=== PATIENT | female | born 1945 | race Caucasian/White ===

== ENCOUNTER 2017-03-23 10:12 | Observation (INO) | payer MEDICARE, OTHER ==
--- NOTE | 2017-03-23 10:34 | ED Physician Documentation ---
History of Present Illness - Stated complaint Stated Complaint: CHEST PX - Chief complaint Chief Complaint: Cardiac - Additonal information Additional information: hx from pt 71 female chest pain onset 4 AM left sided 11/13 feels like needles no cough soa no abd pain + nausea no vomit no leg swelling no travel no fhx CAD and her BP monitor read irreg HR Review of Systems Constitutional: denies: Fever, Chills, Sweats Throat: denies: Sore throat Cardiac: reports: Chest pain / pressure Respiratory: denies: Dyspnea GI: reports: Nausea. denies: Abdominal Pain Musculoskeletal: denies: Back pain, Extremity swelling Endocrine: denies: Easy bruising / bleeding Immunocompromised: denies: Immunocompromised PD PAST MEDICAL HISTORY - Past Medical History Past Medical History: Yes Cardiovascular: Hypertension, High cholesterol GI: GERD - Present Medications Home Medications: Ambulatory Orders Medication Instructions Recorded Confirmed Amlodipine Besylate 5 mg PO DAILY 03/23/17 03/23/17 Gabapentin 600 mg PO DAILY 03/23/17 03/23/17 Lansoprazole [Prevacid] 30 mg PO DAILY 03/23/17 03/23/17 Losartan/Hydrochlorothiazide 1 tab PO DAILY 03/23/17 03/23/17 [Losartan-Hctz 100-25 mg Tab] Metoprolol Succinate 50 mg PO DAILY 03/23/17 03/23/17 Rosuvastatin Calcium 10 mg PO DAILY 03/23/17 03/23/17 - Allergies Allergies/Adverse Reactions: Allergies Allergy/AdvReac Type Severity Reaction Status Date / Time No Known Drug Allergies Allergy Verified 03/23/17 10:21 - Social History Does the pt smoke?: No Smoking Status: Never smoker PD ED PE NORMAL - Vitals Vital signs reviewed: Yes - General General: Alert and oriented X 3 - HEENT HEENT: PERRL - Neck Neck: Supple, no meningeal sign - Cardiac Cardiac: RRR - Respiratory Respiratory: No respiratory distress, Clear bilaterally - Abdomen Abdomen: Soft, Non tender - Extremities Extremities: No edema - Neuro Neuro: Alert and oriented X 3, No motor deficit Results - Vitals Vitals: Vital Signs - 24 hr 03/23/17 03/23/17 10:18 11:11 Temperature 36.7 C Heart Rate 85 86 Respiratory 18 16 Rate Blood Pressure 141/77 H 108/66 O2 Saturation 97 92 Oxygen O2 Source Room air - EKG (time done) 1027 Rate: Rate (enter#) (82) Rhythm: NSR [place]: Normal Intervals: Normal CT Ischemia: Q waves, Non specific changes - Labs Labs: Laboratory Tests 03/23/17 03/23/17 03/23/17 10:58 10:58 10:58 WBC 6.9 RBC 4.96 Hgb 14.0 Hct 41.4 MCV 83.5 MCH 28.2 MCHC 33.7 RDW 13.6 Plt Count 243 MPV 7.9 Neut # 5.7 Lymph # 1.0 L [place] # 0.1 Eos # 0.1 Baso # 0.1 Absolute Nucleated RBC 0.00 Nucleated RBCs 0.0 Sodium 137 Potassium 3.3 L Chloride 100 L Carbon Dioxide 26 Anion Gap 11.0 BUN 12 Creatinine 0.6 Estimated GFR (MDRD) 99 Glucose 148 H Calcium 9.6 Total Bilirubin 1.0 AST 26 ALT 23 Alkaline Phosphatase 80 Troponin I < 0.04 Total Protein 7.1 Albumin 4.1 Globulin 3.0 Albumin/Globulin Ratio 1.4 Lipase 37 - Rads (name of study) CXR Radiology: See rad report (neg) PD MEDICAL DECISION MAKING - ED course ED course: trop # 1 neg 4-6 hr after onset of sx but EKG shows Q waves concerning for prior CAD and pain was relieved with nitro feel pt has enough risk factors and her heart score is 6 - feel best to place in obs for serial CE and an echo Departure - Departure Disposition: ED Place in Observation Clinical Impression: Chest pain Qualifiers: Chest pain type: unspecified Qualified Code(s): R07.9 - Chest pain, unspecified Condition: Good Discharge Date/Time: 03/23/17 12:39
[2017-03-23] MEDS ORDERED: ASPIRIN CHEW 81 MG TABLET PO STA (10:38)
[2017-03-23] MEDS ORDERED: NITROGLYCERIN SL 0.4 MG TABLET SL STA (10:38)
[2017-03-23] MEDS ORDERED: NITROGLYCERIN SL 0.4 MG TABLET SL ONE (11:11)
[2017-03-23] MEDS ORDERED: ASPIRIN CHEW 81 MG TABLET ONE (11:11)
[2017-03-23 11:12] LABS: BASOPHILS # (AUTO) 0.1 10^3/uL (0.0-0.1); BASOPHILS % (AUTO) 1.6 %; EOSINOPHILS # (AUTO) 0.1 10^3/uL (0.0-0.7); EOSINOPHILS % (AUTO) 0.7 %; HCT - HEMATOCRIT 41.4 % (37.0-47.0); LYMPHOCYTES % (AUTO) 13.8 %; MEAN CORPUSCULAR HEMOGLOBIN 28.2 pg (27.0-31.0); MEAN CORPUSCULAR HGB CONC 33.7 g/dL (32.0-36.0); MEAN CORPUSCULAR VOLUME 83.5 fL (81.0-99.0); MEAN PLATELET VOLUME 7.9 fL (7.9-10.8); MONOCYTES # (AUTO) 0.1 10^3/uL (0.0-1.0); MONOCYTES % (AUTO) 1.9 %; NEUTROPHILS # (AUTO) 5.7 10^3/uL (1.5-6.6); RED BLOOD COUNT 4.96 10^6/uL (4.20-5.40); RED CELL DISTRIBUTION WIDTH 13.6 % (12.0-15.0); UNCORRECTED WHITE BLOOD COUNT 6.9 x10^3/uL; WHITE BLOOD COUNT 6.9 x10^3/uL (4.8-10.8)
[2017-03-23 11:21] LABS: ALBUMIN/GLOBULIN RATIO 1.4 (1.0-2.2); CALCIUM 9.6 mg/dL (8.5-10.3); CREATININE 0.6 mg/dL (0.4-1.0); POTASSIUM 3.3 mmol/L (3.5-5.0); TOTAL PROTEIN 7.1 g/dL (6.7-8.2)
--- NOTE | 2017-03-23 11:23 | XRAY Preliminary Report ---
Exam: XR Chest 1 View IMPRESSION: Grossly clear lungs. [facility] SITE ID: [id number]
--- NOTE | 2017-03-23 11:25 | XRAY Report ---
EXAM: CHEST RADIOGRAPHY EXAM DATE: 03/23/2017 10:50 AM. CLINICAL HISTORY: Cp soa. COMPARISON: None. TECHNIQUE: 1 view. FINDINGS: Lungs/Pleura: No focal opacities evident. No pleural effusion. No pneumothorax. Mediastinum: Within exam limitations, cardiomediastinal contour is normal. Other: None. IMPRESSION: Grossly clear lungs. [facility] Referring Provider Line: [phone] SITE ID: [id number]
[2017-03-23] MEDS ORDERED: NITROGLYCERIN SL 0.4 MG TABLET SL PRN (12:36)
[2017-03-23] MEDS ORDERED: MORPHINE 2 MG/ML SYRINGE IVP PRN (12:36)
[2017-03-23] MEDS ORDERED: SODIUM CHLORIDE FLUSH 0.9% 10 ML SYRINGE IVP PRN (12:39)
[2017-03-23] MEDS ORDERED: ACETAMINOPHEN 325 MG TABLET PO PRN (12:39)
[2017-03-23] MEDS ORDERED: ONDANSETRON ODT 4 MG TABLET TL PRN (12:39)
[2017-03-23 12:48] LABS: HEMOGLOBIN A1C 0.55 g/dL
[2017-03-23] MEDS ORDERED: ENOXAPARIN 40 MG/0.4 ML SYRINGE SUBQ SCH (13:00)
[2017-03-23 13:29] LABS: CALCIUM 9.7 mg/dL (8.5-10.3); CREATININE 0.7 mg/dL (0.4-1.0); POTASSIUM 3.7 mmol/L (3.5-5.0)
[2017-03-23 13:39] LABS: CREATINE KINASE MB 1.5 ng/mL (0.6-6.3)
[2017-03-23 13:50] LABS: TROPONIN I < 0.04 ng/mL (<0.49)
[2017-03-23] MEDS: METOPROLOL TARTRATE 25 MG TABLET PO SCH ×3 (14:01→21:23)
[2017-03-23] MEDS: PANTOPRAZOLE 40 MG VIAL IVP SCH (14:02)
[2017-03-23] MEDS: POTASSIUM CHLORIDE 20 MEQ TABLET PO SCH (14:02)
[2017-03-23] MEDS: SODIUM CHLORIDE FLUSH 0.9% 10 ML SYRINGE IVP SCH ×2 (14:05→21:23)
[2017-03-23] MEDS: SODIUM CHLORIDE 0.9% 1,000 ML IV SCH ×2 (14:05→23:39)
--- NOTE | 2017-03-23 14:14 | HISTORY & PHYSICAL EXAMINATION ---
DATE OF ADMISSION: 03/23/2017 CHIEF COMPLAINT: Chest pain. PRIMARY CARE PROVIDER: Unknown, the patient is from [place]. HISTORY OF PRESENT ILLNESS: The patient is a 71-year-old [place] woman who presented to the ED t anand while on vacation from [place] visiting her family here at [facility] and experiencing c hest pains that started approximately 4 in the morning. The patient states that she has had similar s ymptoms in the past with what was described as acid reflux and indigestion. She has never had a heart attack. She has been on medication for cholesterol and hypertension that was given to her by her doc saray in [place]. The patient states that the symptoms have been intermittent. She describes it as a shortness of breath, sharp pain in the mid upper epigastric substernal region of her chest, which i s nonradiating. She rates the pain at this time 0/10. Symptoms had resolved after being given nitro. The patient also was given an aspirin while in the ER. The patient denies smoking or drinking alcohol . She is retired, does not work. She takes only blood pressure medication and cholesterol medication. The patient's last episode prior to this episode was a couple years ago. Her doctor then put her on Prevacid as well as a hypertension medication. While in the ER, blood work showed that the patient wa s hypokalemic with a potassium of 3.3. All other electrolytes were within normal limits. EKG did show some Q-wave abnormality, sinus rhythm. First troponin was negative at 0.4. The patient will be admit sarkis to observation status, will rule out with cardiac markers, echocardiogram and place on chest pain protocol with morphine, oxygen, nitroglycerin, and aspirin. This patient also had a history of acid reflux. Will continue her Prevacid upon admission. ALLERGIES: NO KNOWN DRUG ALLERGIES. MEDICATIONS 1. Amlodipine 5 mg p.o. daily. 2. Gabapentin 600 mg p.o. daily. 3. Losartan/hydrochlorothiazide 1 tablet p.o. daily. 4. Metoprolol 50 mg p.o. daily. 5. Prevacid 30 mg capsule p.o. daily. 6. Rosuvastatin 10 mg p.o. daily. PAST MEDICAL HISTORY 1. Hyperlipidemia. 2. Hypertension. 3. Gastroesophageal reflux disease. 4. History of restless leg pain. PAST SURGICAL HISTORY: None. FAMILY HISTORY: The patient states that her father just recently from a CVA. Mother had n o significant medical history. SOCIAL HISTORY: The patient lives in [place]. She was up visiting her son and [id number] at [facility]. PAST SOCIAL HISTORY: The patient does not drink alcohol, does not smoke cigarettes, and does not use any illicit drugs. She is retired. REVIEW OF SYSTEMS: Ten systems have been reviewed and negative with the exception as discussed in the HPI prior. She is negative for shortness of breath. Positive for nausea, which has resolved. Positiv e for chest pain, which has resolved. No dizziness, no lightheadedness, no headache. Negative for hem aturia, dysuria, black tarry stool. Negative for numbness, tingling to extremities. Negative for weak ness or lightheadedness. Negative for blurry vision. PHYSICAL EXAMINATION CONSTITUTIONAL: The patient is alert, no acute distress. EYES: Pupils equal, round, and react to light and accommodation. Conjunctivae and sclerae was not ict bhaskar, not injected. NOSE: Nares are patent. No nasal discharge. OROPHARYNX: No masses, exudates, or lesions. Mucous membranes are moist. NECK: Supple. No thyromegaly. CARDIOVASCULAR: S1, S2 were noted. No gallops, murmurs, or rubs. RESPIRATORY: Breath sounds are clear and equal bilaterally to auscultation and percussion, no retract ions, nasal flaring, or increased work of breathing. GASTROINTESTINAL: Abdomen is soft, nontender. Bowel sounds are present in 4 quadrants. No guarding or rebound. GENITOURINARY: No CVA tenderness. No mass palpated. No bladder distention. SKIN: Warm, dry, intact. Normal turgor. No evidence of rash, lesions, or cellulitis. NEUROLOGICAL: The patient is alert, GCS 15. Cranial nerves 2-12 are grossly intact. Sensory is intact . MUSCULOSKELETAL: Extremities, full range of motion with upper and lower extremities. Sensory is intac t. Motor is 5/5 upper and lower bilaterally. HEMATOLOGIC: No active bleeding. The patient is hemodynamically stable. LYMPHATICS: No cervical, axillary, supraclavicular lymphadenopathy is noted. PSYCHIATRIC: Oriented x3 behavior is appropriate, cooperative, pleasant mood. LABORATORY AND DIAGNOSTIC DATA: I personally reviewed the laboratory and diagnostic data in the medic al records and the results are as follows: DIAGNOSTICS 1. Chest x-ray: Impression shows no active acute process. Lungs were grossly clear. No pleural effusi on or pneumothorax. 2. EKG shows no ischemia, sinus rate and rhythm, with no ST elevation or changes. LABORATORY DATA: Sodium is 137, potassium 3.3, chloride is 100, glucose 148, A1c is 5.5, calcium 9.6, magnesium 1.9. AST 26, ALT is 23. First troponin is less than 0.04. Alkaline phosphatase 80. WBC is 6.9, hemoglobin 14, platelets 243. ASSESSMENT AND PLAN 1. Acute substernal chest pain with high risk for cardiac etiology with CHADS score of 6. Plan: Admit the patient to observation. Rule out with cardiac markers. IV fluid for gentle hydration with potass ium supplementation, oral 40 mEq and recheck electrolytes with daily blood draw. EKG, repeat with car diac marker draw. Echocardiogram has been ordered. Continue patient on morphine for pain, oxygen and supplemental with respiratory therapy support at 2 liters nasal cannula, aspirin 325 mg p.o. daily an d nitroglycerin sublingual as needed for acute chest pain. The patient has already been taking an FORD inhibitor and a beta queta which we will continue. Continue to monitor vital signs and blood press ure. 2. Hyperlipidemia, unspecified. Plan: We will get a lipid profile in the a.m. The patient is now on a low-fat cardiac diet. 3. Chronic gastroesophageal reflux disease. Plan: Continue patient on Prevacid. For acute acid reflux , will order GI cocktail. For nausea, Zofran ODT. 4. Deep venous thrombosis prophylaxis with foot pumps and Lovenox subcutaneous. 5. Status. The patient is a FULL CODE status. 6. Risk assessment/disposition. The patient is at high risk for worsening comorbidities. She will req uire 1 night observation stay with high risk for cardiac etiology of her chest pain. The patient will be receiving IV medication with high risk for toxicity and additional diagnostics have been ordered. 7. Time spent with the patient for evaluation and assessment for admission was 45 minutes. JOB #: [id number] EXT JOB #:[id number]
[2017-03-23 22:08] LABS: BILIRUBIN,URINE NEGATIVE (NEGATIVE)
[2017-03-23 22:41] LABS: WBC,URINE 0-3 /HPF (0-5)
[2017-03-23 22:42] LABS: UR CULTURE IF IND NOT INDICATED
[2017-03-23 23:46] LABS: CREATINE KINASE MB 1.1 ng/mL (0.6-6.3)
[2017-03-23 23:48] LABS: TROPONIN I < 0.04 ng/mL (<0.49)
[2017-03-24 06:05] LABS: BASOPHILS % (AUTO) 0.7 %; EOSINOPHILS # (AUTO) 0.1 10^3/uL (0.0-0.7); EOSINOPHILS % (AUTO) 1.9 %; HCT - HEMATOCRIT 37.7 % (37.0-47.0); HGB - HEMOGLOBIN 12.7 g/dL (12.0-16.0); LYMPHOCYTES # (AUTO) 2.3 10^3/uL (1.5-3.5); LYMPHOCYTES % (AUTO) 34.1 %; MEAN CORPUSCULAR HEMOGLOBIN 28.4 pg (27.0-31.0); MEAN CORPUSCULAR HGB CONC 33.8 g/dL (32.0-36.0); MEAN CORPUSCULAR VOLUME 83.9 fL (81.0-99.0); MEAN PLATELET VOLUME 7.7 fL (7.9-10.8); MONOCYTES # (AUTO) 0.6 10^3/uL (0.0-1.0); MONOCYTES % (AUTO) 8.3 %; NEUTROPHILS # (AUTO) 3.7 10^3/uL (1.5-6.6); RED BLOOD COUNT 4.49 10^6/uL (4.20-5.40); UNCORRECTED WHITE BLOOD COUNT 6.7 x10^3/uL; WHITE BLOOD COUNT 6.7 x10^3/uL (4.8-10.8)
[2017-03-24 06:18] LABS: ALBUMIN/GLOBULIN RATIO 1.5 (1.0-2.2); CALCIUM 8.8 mg/dL (8.5-10.3); CREATININE 0.7 mg/dL (0.4-1.0); POTASSIUM 3.5 mmol/L (3.5-5.0); TOTAL PROTEIN 5.9 g/dL (6.7-8.2)
[2017-03-24 06:35] LABS: CHOL/HDL RATIO 2.8 (<4.4); CHOLESTEROL 141 mg/dL; HDL CHOLESTEROL 50 mg/dL; TRIGLYCERIDES 212 mg/dL; VLDL CHOLESTEROL 42 mg/dL
[2017-03-24] MEDS: SODIUM CHLORIDE FLUSH 0.9% 10 ML SYRINGE IVP SCH (06:45)
[2017-03-24] MEDS: PANTOPRAZOLE 40 MG VIAL IVP SCH (06:45)
[2017-03-24] MEDS ORDERED: NIACIN ER 500 MG TABLET PO SCH (07:14)
--- NOTE | 2017-03-24 07:19 | Discharge Plan ---
Discharge Plan Disposition: Home, Self Care Condition: Good Prescriptions: Saccharomyces Boulardii [Florastor] 250 mg PO BID #30 capsule Potassium Chloride [K-Dur] 20 meq PO DAILYWM #15 tablet [place]-3 Acid Ethyl Esters [Lovaza] 1 gm PO BID #30 capsule Niacin [Niaspan] 250 mg PO BID #30 tablet Diet: Cardiac Activity Restrictions: No Restrictions Shower Restrictions: No Driving Restrictions: No Weight Bearing: Full Weight Instruction Topics: Cholesterol Numbers, Triglycerides Additional Instructions or Follow Up instructions: Please take all home medications as prescribed. Your triglycerides were elevated even taking a statin. You have been given a prescription for Niacin and [place] 3 fish oil. You need to try to eat a lower healthy fat diet and monitor the amount of carbohydrates in your diet. Do not eat refined sugar or high fructose corn syrup and avoid soda and white sugar. Try to exercise daily. Walking is the best form of exercise daily. Make sure to get plenty of sleep each night. 7-8 hours is best Be sure to see your primary care doctor when you get back to [facility] Return to the ER or call 911 if you have chest pain again or other symptoms such as shortness of breath or fever. No Smoking: If you smoke, Please STOP! Call for help.
[2017-03-24 07:57] VITALS: BP 110/58
[2017-03-24] MEDS ORDERED: ASPIRIN CHEW 81 MG TABLET PO ONE (08:00)
[2017-03-24] MEDS: POTASSIUM CHLORIDE 20 MEQ TABLET PO SCH (08:56)
[2017-03-24] MEDS ORDERED: OMEGA-3 ACID ETHYL ESTERS 1 GM CAPSULE PO SCH (09:00)
[2017-03-24] MEDS ORDERED: POLYETHYLENE GLYCOL 3350 17 GM PACKET PO SCH (09:00)
--- NOTE | 2017-03-24 16:23 | DISCHARGE SUMMARY ---
"Discharge Summary Admit Date: 03/23/17 Discharge Date: 03/24/17 Discharging Provider: LATASHA VELASQUEZ APRN Primary Care Provider: IN [facility] Code Status: Attempt Resuscitation Condition at Discharge: Good Discharge Disposition: 01 Home, Self Care Discharge Facility Name: HOME - DIAGNOSES Admission Diagnoses: 1. ACUTE CHEST PAIN WITH POSSIBLE CARDIAC ETIOLOGY 2. MIXED HYPERLIPDEMIA 3. ESSENTIAL BENIGN HYPERTENSION 4. GERD Discharge Diagnoses with Status of Each Condition: 1. ACUTE MID EPIGASTRIC PAIN WITH GERD 2. MIXED HYPERLIPDEMIA WITH HYPERTRIGLYCERIDEMIA 3. ESSENTIAL BENIGN HYPERTENSION 4. CHRONIC GERD - HPI History of Present Illness: ED course ED course: trop # 1 neg 4-6 hr after onset of sx but EKG shows Q waves concerning for prior CAD and pain was relieved with nitro feel pt has enough risk factors and her heart score is 6 - feel best to place in obs for serial CE and an echo Departure - Departure Disposition: ED Place in Observation Clinical Impression: Chest pain Qualifiers: Chest pain type: unspecified Qualified Code(s): R07.9 - Chest pain, unspecified Condition: Good - CONSULTS | PROCEDURES Consultations: NONE Procedures: ECHOCARDIOGRAM EKG - HOSPITAL COURSE Hospital Course: PATIENT IS A 71 YEAR OLD FEMALE ADMITTED TO OBSERVATION FOR CARDIAC RULE OUT FOR POSSIBLE CHEST PAIN WITH CARDIAC ETIOLOGY. PATIENT WAS VISITING FAMILY AND FROM [place] WHEN SYMPTOMS OCCURRED. SHE WAS ADMITTED FROM THE ER. Patient was started on chest pain protocol with cardiac markers, oxygen, nitro and aspirin therapy. An echocardiography was performed and found an EF to be 65 % and grade 1 diastolic congestive heart failure. She had an EKG that was sinus rate and rhythm and no ischemia noted. Chest xray was negative for acute process. Patient has a history of GERD and was given protonix and a GI cocktail. The GI cocktail helped with the midepigatric pain.She was also given aspirin and Nitro in the ER that helped relieve the pain prior to coming to the floor. She was pain free on the floor She was also given tylenol for mild pain. She had no events overnight stay and all three troponins were negative. Lipid profile showed an elevated tryglycerides and she was already on a statin. She was given omega 3 and niacin to add to her home medications. She was told to continue on home dosage of beta blockers and ford inhibitor. She had a urinalysis that was negative for UTI. Blood pressures and other vital signs remained stable during stay. Patient was discharged home with plan to see her primary care provider in [place] when she got home and if symptoms return to come back to the ER - ALLERGIES Allergies/Adverse Reactions: Allergies Allergy/AdvReac Type Severity Reaction Status Date / Time No Known Drug Allergies Allergy Verified 03/23/17 10:21 - MEDICATIONS Home Medications: Ambulatory Orders Medication Instructions Recorded Confirmed Amlodipine Besylate 5 mg PO DAILY 03/23/17 03/23/17 Gabapentin 600 mg PO DAILY 03/23/17 03/23/17 Lansoprazole [Prevacid] 30 mg PO DAILY 03/23/17 03/23/17 Losartan/Hydrochlorothiazide 1 tab PO DAILY 03/23/17 03/23/17 [Losartan-Hctz 100-25 mg Tab] Metoprolol Succinate 50 mg PO DAILY 03/23/17 03/23/17 Rosuvastatin Calcium 10 mg PO DAILY 03/23/17 03/23/17 Niacin [Niaspan] 250 mg PO BID #30 tablet 03/24/17 [place]-3 Acid Ethyl Esters [Lovaza] 1 gm PO BID #30 capsule 03/24/17 Potassium Chloride [K-Dur] 20 meq PO DAILYWM #15 tablet 03/24/17 Saccharomyces Boulardii [Florastor] 250 mg PO BID #30 capsule 03/24/17 - PHYSICAL EXAM AT DISCHARGE General Appearance: positive: No acute distress, Alert Eyes Bilateral: positive: Normal inspection, PERRL, EOMI ENT: positive: ENT inspection nml, Pharynx nml, No signs of dehydration Neck: positive: Nml inspection, Thyroid nml, No JVD, Trachea midline Respiratory: positive: Chest non-tender, No respiratory distress, Breath sounds nml Cardiovascular: positive: Regular rate & rhythm, No murmur, No gallop Peripheral Pulses: positive: 2+ Abdomen: positive: Non-tender, No organomegaly, Nml bowel sounds, No distention Rectal: positive: Non-tender Back: positive: Nml inspection Skin: positive: Color nml, No rash, Warm, Dry Extremities: positive: Non-tender, Full ROM, Nml appearance, No pedal edema Neurologic/Psychiatric: positive: Oriented x3, CN's nml (2-12), Motor nml, Sensation nml, Mood/affect nml - LABS Result Diagrams: 03/24/17 05:42 03/24/17 05:42 Other Lab Results: Abnormal Lab Results 03/23/17 03/23/17 03/23/17 10:58 10:58 12:20 MPV Lymph # 1.0 10^3/uL L 10^3/uL (1.5-3.5) Potassium 3.3 mmol/L L mmol/L (3.5-5.0) Chloride 100 mmol/L L mmol/L (101-111) Estimated GFR (MDRD) Glucose 148 mg/dL H mg/dL (70-100) Estim Average Glucose 111 H (70-100) Total Protein Triglycerides HDL Cholesterol 03/23/17 03/24/17 03/24/17 13:15 05:42 05:42 MPV 7.7 fL L fL (7.9-10.8) Lymph # Potassium Chloride Estimated GFR (MDRD) 83 L (>89) Glucose 110 mg/dL H mg/dL (70-100) Estim Average Glucose Total Protein Triglycerides 212 mg/dL H mg/dL ( - 149) HDL Cholesterol 50 mg/dL L mg/dL (60 - ) 03/24/17 05:42 MPV Lymph # Potassium Chloride Estimated GFR (MDRD) 83 L (>89) Glucose Estim Average Glucose Total Protein 5.9 g/dL L g/dL (6.7-8.2) Triglycerides HDL Cholesterol - DIAGNOSTIC IMAGING Diagnostic Imaging Results: Final report reviewed Diagnostic Imaging Results Comments: ECHOCARDIOGRAM - FOLLOW UP Follow Up: PATIENT WAS INSTRUCTED TO SEE HER PRIMARY CARE PROVIDER WHEN SHE RETURNS TO [facility]. SHE WAS GIVEN A PRESCRIPTION FOR OMEGA 3 AND NIACIN SINCE SHE IS ALREADY ON BETA ANTIONETTE, STATIN, ASPIRIN AND FORD INHIBITOR. - TIME SPENT Time Spent in Discharge (Minutes): 40 (FOR PLANNING, ASSESSMENT AND PLANNING)"
[2017-03-25] MEDS ORDERED: METOPROLOL TARTRATE 50 MG TABLET PO SCH (21:00)
== END 2017-03-24 10:40 | disposition home or self-care (01) ==
LOC: ED 10:12 → OBS 12:17
PROVIDERS: ADMIT Nurse Practitioner; ATTEND Nurse Practitioner
DX: K21.9 Gastro-esophageal reflux disease without esophagitis (principal); E78.1 Pure hyperglyceridemia; I11.0 Hypertensive heart disease with heart failure; I50.30 Unspecified diastolic (congestive) heart failure; E87.6 Hypokalemia; Z79.899 Other long term (current) drug therapy
CPT/HCPCS: 36415; 71010; 80048; 80053; 80061; 80306; 81001; 82550; 82553; 83036; 83690; 83735; 84484; 85025; 93005; 93306; 96372; 96374; 96376; 99218; 99284; A9270; G0378; J1650; 87086